=== PATIENT | male | born 1955 | race Caucasian/White ===

== ENCOUNTER 2018-09-05 14:06 | Emergency (ER) | payer MEDICAID ==
[2018-09-05] MEDS ORDERED: DEXAMETHASONE SOD PHOSPHATE 10MG/ML 1ML VIAL ONE (15:41)
[2018-09-05] MEDS ORDERED: KETOROLAC TROMETHAMINE 60 MG/2 ML VIAL ONE (15:41)
[2018-09-05] MEDS ORDERED: ORPHENADRINE CITRATE 30 MG/ML ML ONE (15:41)
== END 2018-09-05 16:32 | disposition home or self-care (01) ==
LOC: EDH 14:06
DX: S33.5XXA Sprain of ligaments of lumbar spine, initial encounter (principal); Z72.0 Tobacco use; X58.XXXA Exposure to other specified factors, initial encounter; Y93.89 Activity, other specified; Y92.89 Other specified places as the place of occurrence of the external cause; Y99.8 Other external cause status
CPT/HCPCS: 96372 ×3; 99283; J1100; J1885; J2360

== ENCOUNTER 2018-09-19 11:35 | Emergency (ER) | payer MEDICAID ==
[2018-09-19] MEDS ORDERED: ACETAMINOPHEN-CODEINE 300/30MG TAB ONE (13:01)
== END 2018-09-19 13:09 | disposition home or self-care (01) ==
LOC: EDH 11:35
DX: S70.02XA Contusion of left hip, initial encounter (principal); I71.4 Abdominal aortic aneurysm, without rupture; E78.5 Hyperlipidemia, unspecified; E07.9 Disorder of thyroid, unspecified; Z72.0 Tobacco use; W18.39XA Other fall on same level, initial encounter; Y93.01 Activity, walking, marching and hiking; Y92.89 Other specified places as the place of occurrence of the external cause; Y99.8 Other external cause status
CPT/HCPCS: 72192

== ENCOUNTER 2020-12-14 10:40 | Inpatient (IN) | payer MEDICAID, OTHER ==
[~2020-12-14] VITALS: Ht 175.3 cm; Wt 73.3 kg
[2020-12-14] MEDS ORDERED: 0.9%NACL 1000ML 1,000 ML IV ONE ×2 (11:07→13:22)
[2020-12-14 11:15] LABS: BASOPHILS % (AUTO) 0.4 % (0.0-5.0); EOSINOPHILS % (AUTO) 0.5 % (0.0-8.0); HEMATOCRIT 43.8 % (42-54); LYMPHOCYTES % (AUTO) 12.9 % (21.0-51.0); MEAN CORPUSCULAR HEMOGLOBIN 29.7 pg (27.0-33.0); MEAN CORPUSCULAR HGB CONC 33.3 g/dL (32.0-36.0); MEAN CORPUSCULAR VOLUME 89.2 fL (79-99); MONOCYTES % (AUTO) 7.2 % (3.0-13.0); NEUTROPHILS % (AUTO) 78.7 % (40.0-77.0); PLATELET COUNT (AUTO) 281 K/uL (130-400); RED BLOOD CELL COUNT(AUTO) 4.91 MIL/uL (4.50-6.20); RED CELL DISTRIBUTION WIDTH 13.2 % (11.0-15.5); WHITE BLOOD COUNT (AUTO) 9.3 K/uL (4.8-10.8)
[2020-12-14 11:37] LABS: ALBUMIN 3.2 g/dL (3.5-5.0); BILIRUBIN,TOTAL 0.6 mg/dL (0.2-1.0); CREATININE 0.8 mg/dL (0.5-1.5); POTASSIUM 4.1 mmol/L (3.5-5.1); TOTAL PROTEIN, SERUM 7.1 g/dL (6.0-8.3)
[2020-12-14] MEDS ORDERED: ONDANSETRON 4MG INJ ONE (13:20)
[2020-12-14] MEDS ORDERED: MORPHINE 2 MG SYG ONE (13:20)
[2020-12-14 13:40] LABS: APPEARANCE,URINE Clear (CLEAR); BILIRUBIN,URINE Small (NEGATIVE); COLOR,URINE Dark Yellow (YELLOW); GLUCOSE, URINE (UA) Negative (NEGATIVE); KETONES,URINE Trace mg/dL (NEGATIVE); LEUKOCYTE ESTERASE ,URINE Negative (NEGATIVE); NITRATE,URINE Negative (NEGATIVE); OCCULT BLOOD,URINE Negative (NEGATIVE); PH,URINE 5.5 (5.0-8.0); PROTEIN,URINE Trace mg/dL (NEGATIVE)
[2020-12-14 14:19] LABS: BACTERIA,URINE Few /HPF (None Seen); RBC,URINE 0-1 /HPF (0-1); SQUAMOUS EPITHELIAL CELL,UR Rare /HPF (0-2)
[2020-12-14 14:20] LABS: MUCUS,URINE Moderate LPF (None Seen)
[2020-12-14] MEDS ORDERED: HYDROMORPHONE 1 MG INJ ONE (15:27)
[2020-12-14] MEDS: ZOSYN 3.375GM+NS 50ML 50 ML IV SCH (18:30)
[2020-12-14] MEDS: LACTATED RINGERS 1000ML 1,000 ML IV SCH (18:30)
[2020-12-14] MEDS ORDERED: ZOSYN 3.375GM+NS 50ML 50 ML IV ONE (19:06)
[2020-12-15] MEDS ORDERED: HYDROMORPHONE 1 MG INJ ONE ×3 (00:05→08:26)
[2020-12-15] MEDS ORDERED: HYDROMORPHONE 0.5 MG SYG (0.5MG/0.5ML) ONE ×3 (00:05→08:26)
[2020-12-15] MEDS ORDERED: FENTANYL 25 MCG/HR PATCH TD SCH (01:00)
[2020-12-15] MEDS: ZOSYN 3.375GM+NS 50ML 50 ML IV SCH ×3 (02:30→18:47)
[2020-12-15] MEDS ORDERED: ZOSYN 3.375GM+NS 50ML 50 ML IV ONE ×2 (03:06→10:26)
[2020-12-15] MEDS ORDERED: LACTATED RINGERS 1000ML 1,000 ML IV ONE (03:10)
[2020-12-15] MEDS: LACTATED RINGERS 1000ML 1,000 ML IV SCH ×2 (04:30→14:30)
[2020-12-15 05:10] LABS: BASOPHILS % (AUTO) 0.4 % (0.0-5.0); EOSINOPHILS % (AUTO) 0.9 % (0.0-8.0); HEMATOCRIT 41.7 % (42-54); LYMPHOCYTES % (AUTO) 13.5 % (21.0-51.0); MEAN CORPUSCULAR HEMOGLOBIN 29.9 pg (27.0-33.0); MEAN CORPUSCULAR HGB CONC 33.3 g/dL (32.0-36.0); MEAN CORPUSCULAR VOLUME 89.7 fL (79-99); PLATELET COUNT (AUTO) 256 K/uL (130-400); RED BLOOD CELL COUNT(AUTO) 4.65 MIL/uL (4.50-6.20); RED CELL DISTRIBUTION WIDTH 13.2 % (11.0-15.5); WHITE BLOOD COUNT (AUTO) 10.2 K/uL (4.8-10.8)
[2020-12-15 05:12] LABS: CREATININE 0.6 mg/dL (0.5-1.5)
[2020-12-15 12:02] VITALS: BP 124/78
[2020-12-15] MEDS: HYDROMORPHONE 2 MG VIAL (2MG/ML) IVP PRN (13:25)
[2020-12-15] MEDS: SOLU-MEDROL 125MG VIAL IVP SCH (16:05)
[2020-12-15 16:30] VITALS: BP 135/65
[2020-12-15 19:50] VITALS: BP 143/70
[2020-12-16] VITALS: BP 122/63
[2020-12-16] MEDS: ZOSYN 3.375GM+NS 50ML 50 ML IV SCH ×3 (01:57→18:46)
[2020-12-16 04:00] VITALS: BP 128/64
[2020-12-16] MEDS: HYDROMORPHONE 2 MG VIAL (2MG/ML) IVP PRN ×2 (04:24→21:43)
[2020-12-16] MEDS: LACTATED RINGERS 1000ML 1,000 ML IV SCH ×3 (04:27→14:26)
[2020-12-16 08:00] VITALS: BP 128/73
[2020-12-16] MEDS ORDERED: FENTANYL 25 MCG/HR PATCH TD SCH (11:15)
[2020-12-16] MEDS ORDERED: ERGO500093 PO (11:19)
[2020-12-16] MEDS ORDERED: ROSU20TA31 PO (11:19)
[2020-12-16] MEDS ORDERED: HYDR-4068 PO (11:19)
[2020-12-16] MEDS ORDERED: OMEP20TA25 PO (11:19)
[2020-12-16] MEDS ORDERED: LEVO50TA11 PO (11:19)
[2020-12-16] MEDS ORDERED: ALPR1TAB2 PO (11:19)
[2020-12-16] MEDS ORDERED: SERT-440 PO (11:19)
[2020-12-16 12:00] VITALS: BP 129/61
[2020-12-16] MEDS ORDERED: PHARMACY COMMUNICATION MISC SCH (12:00)
[2020-12-16] MEDS: SOLU-MEDROL 125MG VIAL IVP SCH (14:20)
[2020-12-16] MEDS: FLUCONAZOLE 200 MG/NS 100 ML 100 ML IV SCH (14:20)
[2020-12-16 16:00] VITALS: BP 130/61
[2020-12-16] MEDS ORDERED: GLYCERIN ADULT SUPP.RECT RC SCH (18:55)
[2020-12-16 20:00] VITALS: BP 150/75
[2020-12-16] MEDS: ATORVASTATIN 40 MG TABLET PO SCH (21:00)
[2020-12-16] MEDS ORDERED: NON-FORMULARY MEDICATION 1 EACH (Rosuvastatin Calcium 20 MG) PO SCH (21:00)
[2020-12-17] VITALS (7 sets, daily range): BP systolic 124–154; BP diastolic 57–84
[2020-12-17] MEDS: ZOSYN 3.375GM+NS 50ML 50 ML IV SCH ×3 (02:30→19:58)
[2020-12-17] MEDS: LACTATED RINGERS 1000ML 1,000 ML IV SCH ×2 (02:35→16:30)
[2020-12-17] MEDS: LEVOTHYROXINE 50 MCG TABLET PO SCH (06:30)
[2020-12-17] MEDS ORDERED: NON-FORMULARY MEDICATION 1 EACH (Sertraline HCl 100 MG) PO SCH (09:00)
[2020-12-17] MEDS: SERTRALINE HCL 50 MG TABLET PO SCH (09:00)
[2020-12-17] MEDS ORDERED: PANTOPRAZOLE 40 MG TAB DR PO SCH (09:00)
[2020-12-17] MEDS ORDERED: NON-FORMULARY MEDICATION 1 EACH (Omeprazole 20 MG) PO SCH (09:00)
[2020-12-17] MEDS ORDERED: BISACODYL 10 MG SUPP.RECT RC PRN (10:01)
[2020-12-17] MEDS ORDERED: LACTULOSE 20 GM/30 ML UDCUP PO PRN (10:01)
[2020-12-17] MEDS: HYDROMORPHONE 2 MG VIAL (2MG/ML) IVP PRN ×3 (10:41→22:46)
[2020-12-17] MEDS: SOLU-MEDROL 125MG VIAL IVP SCH (13:32)
[2020-12-17] MEDS: FLUCONAZOLE 200 MG/NS 100 ML 100 ML IV SCH (13:32)
[2020-12-17] MEDS: ATORVASTATIN 40 MG TABLET PO SCH (20:02)
[2020-12-18] MEDS: LACTATED RINGERS 1000ML 1,000 ML IV SCH ×2 (01:43→10:42)
[2020-12-18] MEDS: ZOSYN 3.375GM+NS 50ML 50 ML IV SCH ×2 (03:09→10:42)
[2020-12-18 03:35] VITALS: BP 146/69
[2020-12-18] MEDS: LEVOTHYROXINE 50 MCG TABLET PO SCH ×2 (05:39→05:40)
[2020-12-18 05:42] LABS: HEMATOCRIT 41.2 % (42-54); LYMPHOCYTES % (AUTO) 10.2 % (21.0-51.0); MEAN CORPUSCULAR HEMOGLOBIN 29.2 pg (27.0-33.0); MEAN CORPUSCULAR VOLUME 88.4 fL (79-99); NEUTROPHILS % (AUTO) 85.3 % (40.0-77.0); PLATELET COUNT (AUTO) 250 K/uL (130-400); RED BLOOD CELL COUNT(AUTO) 4.66 MIL/uL (4.50-6.20); RED CELL DISTRIBUTION WIDTH 12.6 % (11.0-15.5); WHITE BLOOD COUNT (AUTO) 10.7 K/uL (4.8-10.8)
[2020-12-18 05:55] LABS: CREATININE 0.7 mg/dL (0.5-1.5); POTASSIUM 4.1 mmol/L (3.5-5.1)
[2020-12-18 07:30] VITALS: BP 144/70
[2020-12-18] MEDS: SERTRALINE HCL 50 MG TABLET PO SCH (08:19)
[2020-12-18] MEDS: HYDROMORPHONE 2 MG VIAL (2MG/ML) IVP PRN (08:23)
[2020-12-18] MEDS ORDERED: FAMOTIDINE 20MG VIAL IV SCH (09:00)
[2020-12-18] MEDS ORDERED: PANTOPRAZOLE 40 MG/VIAL IVP SCH (09:00)
[2020-12-18 11:00] VITALS: BP 149/68
[2020-12-18] MEDS ORDERED: ONDANSETRON 4MG INJ IVP PRN (12:00)
[2020-12-18] MEDS ORDERED: ONDANSETRON 4MG INJ ONE (12:01)
[2020-12-18] MEDS: FLUCONAZOLE 200 MG/NS 100 ML 100 ML IV SCH (14:08)
[2020-12-18] MEDS: SOLU-MEDROL 125MG VIAL IVP SCH (14:08)
[2020-12-18 16:00] VITALS: BP 152/70
== END 2020-12-18 21:05 | disposition short-term general hospital (02) | DRG 146 ==
LOC: EDH 10:40 → INTOOBSV 18:30 → EDHIP 18:30 → OBSVTOIN 18:30 → 3BH 12-15 11:18
PROVIDERS: ADMIT Internal Medicine; ATTEND Internal Medicine
DX: C32.9 Malignant neoplasm of larynx, unspecified (principal); J18.9 Pneumonia, unspecified organism; B37.0 Candidal stomatitis; R64 Cachexia; E87.1 Hypo-osmolality and hyponatremia; J44.0 Chronic obstructive pulmonary disease with (acute) lower respiratory infection; R13.12 Dysphagia, oropharyngeal phase; J38.4 Edema of larynx; R53.81 Other malaise; E86.0 Dehydration; I10 Essential (primary) hypertension; E78.5 Hyperlipidemia, unspecified; E03.9 Hypothyroidism, unspecified; E86.1 Hypovolemia; E88.09 Other disorders of plasma-protein metabolism, not elsewhere classified; F17.200 Nicotine dependence, unspecified, uncomplicated; Z68.23 Body mass index [BMI] 23.0-23.9, adult; Z85.21 Personal history of malignant neoplasm of larynx; Z85.818 Personal history of malignant neoplasm of other sites of lip, oral cavity, and pharynx; Z92.3 Personal history of irradiation; Z80.42 Family history of malignant neoplasm of prostate
CPT/HCPCS: 36415; 70490; 71045; 80048; 80053; 81001; 82150; 82550; 83690; 84145; 84443; 84484; 85025; 87116; 87206; 93005; G0378; J1170; J1450; J2405; J2543; J2930; J3490; J7030; J7120